=== PATIENT | male | born 1960 | race Caucasian/White ===

== ENCOUNTER 2016-09-08 15:09 | Day surgery (SDC) | payer BC ==
[2016-09-08] VITALS (8 sets, daily range): BP systolic 112–142; BP diastolic 80–97; PULSE 72–91; RESP 12–25; Ht 177.8 cm; Wt 72.0 kg
[~2016-09-08] VITALS: Ht 177.8 cm; Wt 72.0 kg
[2016-09-08] MEDS ORDERED: HYDR-902 PO (16:22)
[2016-09-08] MEDS ORDERED: METH10TA2 PO (16:22)
[2016-09-08] MEDS ORDERED: CEFAZOLIN 2 GM/50 ML (PMX) 50 ML IVPB SCH (16:30)
--- NOTE | 2016-09-08 17:25 | HPN ---
Date/Time of Note Date/Time of Note DATE: 09/08/16 TIME: 17:25 Interval H&P Admission Note Pt. seen H&P reviewed: No system changes FARAZ PONCE DPM Sep 08, 2016 17:25
[2016-09-08] MEDS ORDERED: FENTAnyl 50 MCG/ML VIAL ONE (17:29)
[2016-09-08] MEDS ORDERED: ROPIVACAINE 0.5 % 30 ML VIAL ONE (17:29)
[2016-09-08] MEDS ORDERED: CEFAZOLIN 1 GM INJ ONE (19:37)
[2016-09-08] MEDS ORDERED: SUCCINYLCHOLINE CHLORIDE 100 MG/5 ML SYG IV ONE (19:37)
[2016-09-08] MEDS ORDERED: GLYCOPYRROLATE 0.4 MG INJ ONE (19:37)
[2016-09-08] MEDS ORDERED: NEOSTIGMINE 3 MG/3 ML SYRINGE ONE (19:37)
[2016-09-08] MEDS ORDERED: PROPOFOL 40 ML ONE (19:37)
[2016-09-08] MEDS ORDERED: ROCURONIUM 50 MG INJ ONE (19:37)
[2016-09-08] MEDS ORDERED: LIDOCAINE 2% (SDV) 5 ML INJ ONE (19:37)
[2016-09-08] MEDS ORDERED: FENTAnyl 50 MCG/ML VIAL IV PRN (20:00)
[2016-09-08] MEDS ORDERED: morphine (1 MG/ML) 10ML SYRINGE IV PRN ×2 (20:00)
[2016-09-08] MEDS ORDERED: DIPHENHYDRAMINE 50 MG INJ IV PRN (20:00)
[2016-09-08] MEDS ORDERED: MEPERIDINE 25 MG INJ IV PRN (20:00)
--- NOTE | 2016-09-09 07:34 | RADRPT ---
PROCEDURE: Right ankle study CLINICAL INDICATION: Intraoperative imaging TECHNIQUE: 9 intraoperative images were obtained. 34.2 to seconds of fluoroscopic time was utiliz ed. COMPARISON: None FINDINGS: The composite demonstrates a comminuted right calcaneal fracture. The composite demonstrates placem ent of 2 fixation screws extending through the posterior right calcaneus and into the posterior and mid right talar bone with fusion of the right posterior subtalar joint. Bony detail is suboptimal. No other definite fractures. Recommend comparison with previous studies. IMPRESSION: Intraoperative imaging and fixation of the right subtalar joint and calcaneal fracture as above. RPTAT:AAJJ Physician Bev Date Time Electronically viewed and signed by Physician Bev on 09/09/2016 07:33 /
--- NOTE | 2016-09-09 07:35 | RADRPT ---
PROCEDURE: Right foot series CLINICAL INDICATION: Postoperative TECHNIQUE: AP, lateral and oblique views of the right foot was obtained. COMPARISON: None. FINDINGS: There is a fiberglass splint in place. 2 fixation screws extend obliquely through the comminuted ri ght calcaneal fracture and into the dome of the right talus in bone and with fusion of the subtalar joint. No other fractures or dislocation demonstrated. There is a surgical staple line seen along the lateral right ankle and posterior lateral right foot. There is soft tissue changes consistent w ith postoperative change. IMPRESSION: 1. Fixation of a comminuted right calcaneal fracture and fusion of the right subtalar joint as desc ribed above. RPTAT:AAJJ Physician Bev Date Time Electronically viewed and signed by Physician Bev on 09/09/2016 07:35 /
== END 2016-09-08 20:51 | disposition home or self-care (01) ==
LOC: SDS 15:09
PROVIDERS: ATTEND Podiatrist Foot & Ankle Surgery
DX: M12.571 Traumatic arthropathy, right ankle and foot (principal); S92.061S Displaced intraarticular fracture of right calcaneus, sequela; M21.41 Flat foot [pes planus] (acquired), right foot; X58.XXXS Exposure to other specified factors, sequela; Z79.891 Long term (current) use of opiate analgesic; J44.9 Chronic obstructive pulmonary disease, unspecified
CPT/HCPCS: 28725; 73610; 73630; 88304; 88311; C1713; J0330; J0690; J2710; J2795; J3010; Z7512; Z7610